=== PATIENT | male | born 2000 | race Caucasian/White ===

== ENCOUNTER 2022-06-27 10:05 | Emergency (ER) | payer OTHER, SELFPAY ==
--- NOTE | 2022-06-27 10:10 | ED.SKABFB ---
HPI - Skin/Abscess/Foreign Bdy General Chief complaint: Wound/Laceration Stated complaint: Wound on nose Time Seen by Provider: 06/27/22 10:10 Source: patient and RN notes reviewed History of Present Illness HPI narrative: Patient is a 22-year-old male who presents to urgent care with complaints of a wound on his nose. Patient states he noticed approximately 1 week ago. Patient states it started out as a small pimple and he scratched it while working in the garage and has now gotten larger and is draining. Patient states that swollen and painful. Denies any history of staph infection. Denies any fevers. No other acute complaints. No acute distress noted. Patient aware of the plan of care. Some parts of this dictation were generated by voice recognition software and may contain typographical and/or grammatical inaccuracies. Related Data Allergies Allergy/AdvReac Type Severity Reaction Status Date / Time No Known Allergies Allergy Unverified 07/09/16 11:53 Review of Systems Review of Systems: CONSTITUTIONAL: Denies fever, chills, or sweats. EYES: Denies visual changes, redness, or discharge. ENT: Denies rhinorrhea, congestion, sore throat, or otalgia. CARDIOVASCULAR: Denies chest pain, palpitations, or edema. RESPIRATORY: Denies cough or dyspnea. GASTROINTESTINAL: Denies abdominal pain, nausea, vomiting, or diarrhea. GENITOURINARY: Denies dysuria or hematuria. SKIN: Reports of a wound with redness and swelling to the nose MUSCULOSKELETAL: Denies back pain, joint pain, or myalgia. NEUROLOGIC: Denies headache, numbness, or weakness. All other systems reviewed are negative, except as documented in HPI. PMFSH Comments At the time of my signature, I reviewed and agree with the nursing past medical, surgical, social, and family history. There is no relevant family history pertinent to the patient complaint. Exam Narrative: GENERAL: This is a well-nourished, well-developed patient, in no apparent distress. HEAD: normocephalic, atraumatic. EYES: PERRL. Sclera clear/white. Vision is grossly intact. EARS: External ears normal NOSE: External nose normal with no obvious nasal discharge, nares without redness, no rhinorrhea. THROAT: Mucous membranes moist, posterior pharynx clear. NECK: Neck supple SKIN: Tender erythemic firm 2 x 2 cm area with a center impetigo lesion on the nasal bridge NEURO: awake, alert, and oriented to person, place and time. There were no obvious focal neurologic abnormalities. EXTREMITIES: No clubbing, cyanosis, or edema. Course Course Level of Care: Express Care Visit Vital Signs Vital signs: Vital Signs Temperature 98.8 F 06/27/22 10:12 Pulse Rate 100 06/27/22 10:12 Respiratory Rate 20 06/27/22 10:12 Blood Pressure 154/76 H 06/27/22 10:12 Pulse Oximetry 100 06/27/22 10:12 Oxygen Delivery Room Air 06/27/22 10:12 Temperature 98.8 F 06/27/22 10:12 Pulse Rate 100 06/27/22 10:12 Respiratory Rate 20 06/27/22 10:12 Blood Pressure 154/76 H 06/27/22 10:12 Pulse Oximetry 100 06/27/22 10:12 Oxygen Delivery Room Air 06/27/22 10:12 Reviewed- Patient is informed that they may have pre-hypertension or hypertension based on a blood pressure reading in the department. I recommend the patient call the primary care provider listed on their discharge instructions or a physician of their choice this week to arrange follow-up for further evaluation of possible pre-hypertension or hypertension. MDM - Skin/Abscess/Foreign Bdy MDM Narrative Medical decision making narrative: Advised patient to keep the area clean with plain dial soap and water. Do not use the same washcloth or towel to wipe the face for consecutive days and do not use it to wipe the body. Area it is consistent with impetigo/MRSA. Use the prescription cream to the affected area twice a day. Complete the oral antibiotic regimen as prescribed. Do not try to pick or pop the area. It typically takes a couple days fo
[2022-06-27 10:12] VITALS: BP 154/76; PULSE 100; RESP 20; TEMP 37.1; O2SAT 100
== END 2022-06-27 10:34 | disposition home or self-care (01) ==
PROVIDERS: Emergency Provider Nurse Practitioner Family; PCP Internal Medicine
DX: L01.00 Impetigo, unspecified (principal)
CPT/HCPCS: 99203; G0463